=== PATIENT | male | born 1970 | race Caucasian/White ===

== ENCOUNTER 2019-03-31 12:16 | Day surgery (SDC) | payer OTHER ==
[~2019-03-31] VITALS: Ht 170.2 cm; Wt 100.2 kg
[2019-03-31] MEDS ORDERED: LIDOCAINE 2% 100 MG/5 ML UJET TP ONE (13:21)
[2019-03-31] MEDS ORDERED: fentaNYL 0.05 MG/ML VIAL ONE (13:21)
[2019-03-31] MEDS ORDERED: fentaNYL 0.05 MG/ML VIAL IVP ONE (14:35)
[2019-03-31] MEDS ORDERED: fentaNYL 0.05 MG/ML VIAL IVP SCH (15:00)
== END 2019-03-31 14:10 | disposition home or self-care (01) ==
LOC: MDS 12:16 → MMU 12:17 → MDS 14:10
PROVIDERS: ATTEND Internal Medicine Gastroenterology
DX: K62.5 Hemorrhage of anus and rectum (principal); E66.9 Obesity, unspecified; I10 Essential (primary) hypertension; Z98.890 Other specified postprocedural states; Z79.899 Other long term (current) drug therapy; Z68.34 Body mass index [BMI] 34.0-34.9, adult
CPT/HCPCS: 45378; J3010